=== PATIENT | male | born 1940 | race Caucasian/White ===

== ENCOUNTER 2018-11-10 21:58 | Observation (INO) | payer OTHER ==
--- OUTSIDE RECORDS SUMMARY | 2018-11-10 21:59 | XMS REPORT | Continuity of Care Document ---
:1940 Author Organization Interface Problems Problem Status Onset Date Classification Date Comments Source Reported Medications Medication Details Route Status Patient Ordering Order Source Instructions Provider Date Allergies, Adverse Reactions, Alerts Substance Category Reaction Severity Reaction Status Date Comments Source type Reported Immunizations Immunization Date Given Site Status Last Updated Comments Source Results Order Results Value Reference Date Interpretation Comments Source Name Range Vital Signs Vital Sign Value Date Comments Source Encounters Location Location Encounter Encounter Reason Attending ADM DC Status Source Details Type Number For Provider Date Date Visit Outpatient [id number] [place] 06/17 [facility] Outpatient [id number] ELBERT 12/16 [facility] Procedures Procedure Code Date Perfomer Comments Source
[2018-11-10 22:25] LABS: Absolute Lymphocytes (CBC) 1.5 K/uL (0.7-4.9); Absolute Monocytes 0.4 K/uL (0.1-1.3); Basophils % 0.9 % (0-1.3); Eosinophils % 2.2 % (0-4.4); Hematocrit 40.1 % (39.6-49.0); Lymphocytes % 24.9 % (15.3-44.8); MPV 8.3 fL (7.6-11.3); Monocytes % 7.1 % (3.3-12.3); RBC Red Blood Cell Count 4.24 M/uL (4.33-5.43)
[2018-11-10 22:31] LABS: Protime INR 1.76
[2018-11-10 22:44] LABS: ALT/SGPT 20 U/L (12-78); AST/SGOT 19 U/L (15-37); Albumin 4.2 g/dL (3.4-5.0); Alkaline Phosphatase 59 U/L (45-117); BUN Blood Urea Nitrogen 18 mg/dL (7-18); Bicarbonate 26 mmol/L (21-32); Bilirubin Direct 0.2 mg/dL (0-0.2); Bilirubin Total 0.5 mg/dL (0.2-1.0); Glucose Level 159 mg/dL (74-106); Magnesium 1.8 mg/dL (1.8-2.4); NT PRO-BNP 784 pg/mL (<450); Potassium 3.4 mmol/L (3.5-5.1); Protein, Total 7.8 g/dL (6.4-8.2); Sodium Level 134 mmol/L (136-145); Troponin (Emerg Dept Use Only) < 0.02 ng/mL (0.0-0.045)
--- NOTE | 2018-11-11 00:03 | ER ---
Nurse's Notes [facility] Name: Miko Orr Jr Age: 77 yrs Sex: Male : 1940 Arrival Date: 11/10/2018 Time: 21:59 Bed 3 Private MD: Diagnosis: Syncope and collapse Presentation: 11/10 22:00 Presenting complaint: EMS states: "It was reported to us that he was sitting at his jd3 desk and got up to go to the other room when he fall and passed out for about 5-10 minutes. He was combative at first, but is more appropriate now, he is still a little confused however.". Transition of care: patient was not received from another setting of care. Onset of symptoms was November 10, 2018. Risk Assessment: Do you want to hurt yourself or someone else? Patient reports no desire to harm self or others. Initial Sepsis Screen: Does the patient meet any 2 criteria? No. Patient's initial sepsis screen is negative. Does the patient have a suspected source of infection? No. Patient's initial sepsis screen is negative. Care prior to arrival: Cervical collar in place. Glucose check: 293 Oxygen administered. via nasal cannula. 22:00 Method Of Arrival: EMS: [facility] 22:00 Acuity: HELEN 2 jd3 22:00 Mechanism of Injury: Fall from standing position. Trauma event details: Injury occurred j in the [facility]. Trauma Activation: Alert Physician: ED Physician; Name: Dr. Hanley; Notified At: 22:05; Arrived At: 22:06 Physician: General Surgeon; Name: n/a; Notified At: ; Arrived At: Physician: Radiology; Name: Danuta Howell Victoria; Notified At: 22:05; Arrived At: 22:06 Physician: Respiratory; Name: n/a; Notified At: ; Arrived At: Physician: Lab; Name: n/a; Notified At: ; Arrived At: Historical: - Allergies: 22:23 No Known Allergies; jd3 - Home Meds: 22:23 Flomax 0.4 mg Oral cp24 1 cap once daily [Active]; carbamazepine 200 mg Oral tab 1 tab jd3 twice a day [Active]; fenofibrate 130 mg tab oral tab 1 cap [Active]; pravastatin 40 mg oral tab 1 tab once daily [Active]; Nexium 40 mg Oral cpDR 1 cap once daily [Active]; nifedipine 60 mg Oral TbER 1 tab once daily [Active]; metoprolol tartrate 50 mg Oral tab 1 tab daily [Active]; finasteride 5 mg oral tab 1 tab once daily [Active]; Lyrica Oral [Active]; Xarelto 20 mg oral tab 1 tab once daily [Active]; baclofen 10 mg Oral tab 1 tab twice a day [Active]; - PMHx: 22:23 Myocardial infarction; neuropathy; Hypertension; "heart flutter"; jd3 - PSHx: 22:23 None; jd3 - Immunization history:: Adult Immunizations unknown. - Social history:: Smoking status: Patient/guardian denies using tobacco. - Immunization history: Last tetanus immunization: unknown. - Ebola Screening: : Patient negative for fever greater than or equal to 101.5 degrees Fahrenheit, and additional compatible Ebola Virus Disease symptoms. Screenin:00 Abuse screen: Denies threats or abuse. Tuberculosis screening: jd3 22:00 Nutritional screening: No deficits noted. Fall Risk Fall in past 12 months (25 points). jd3 IV access (20 points). Ambulatory Aid- None/Bed Rest/Nurse Assist (0 pts). Gait- Weak (10 pts.). Mental Status- Oriented to own ability (0 pts). Total Azul Fall Scale indicates High Risk Score (45 or more points). Fall prevention measures have been instituted. Side Rails Up X 2 Placed Close to Nursing Station Frequent Obs/Assessments Occuring Family Present and informed to notify staff if the need to leave the bedside. Primary Survey: 22:00 NO uncontrolled hemorrhage observed. A: The patient is alert. Airway: patent, No jd3 supplemental oxygen in use on arrival. Oral cavity: clear, Trachea midline. Breathing/Chest: Respiratory pattern: regular, Respiratory effort: spontaneous, unlabored, Breath sounds: clear, bilaterally. Chest inspection: symmetrical rise and fall of the chest. Circulation: Cardiac rhythm: atrial flutter Heart tones present. Skin color: pink, Skin temperature: warm. Disability Alert. Exposure/Environment: Obvious injury(ies) are noted at this time: small abrasion noted to left medial wrist. A warming method has been applied: A warm blanket has been provided to the patient. 23:00 Reassessment Airway Airway Patent Oxygen No O2 Oral cavity Clear Breathing/Chest jd3 Respiratory pattern Regular Respiratory effort Spontaneous Unlabored Breath sounds Clear Chest inspection Symmetrical Circulation Heart tones Present Pulses Palpable Color Delmar. Secondary Survey: 22:00 HEENT: No deficits noted. Gastrointestinal: Abdomen is soft, Bowel sounds present in jd3 all quadrants. Palpation No deficit noted. : No signs and/or symptoms were reported regarding the genitourinary system. Musculoskeletal: Circulation, motion, and sensation intact. Range of motion: intact in all extremities. Assessment: 22:00 General: Appears in no apparent distress. uncomfortable, Behavior is calm, cooperative, jd3 appropriate for age. Pain: Denies pain. Neuro: Level of Consciousness is awake, alert, obeys commands, confused, Oriented to person, place. EENT: No signs and/or symptoms were reported regarding the EENT system. Cardiovascular: Denies chest pain, Capillary refill < 3 seconds Patient's skin is warm and dry. Rhythm is irregular. Respiratory: Airway is patent Respiratory effort is even, unlabored, Respiratory pattern is regular, symmetrical, Breath sounds are clear bilaterally. Denies shortness of breath. GI: No signs and/or symptoms were reported involving the gastrointestinal system. Abdomen is round non-distended, Bowel sounds present X 4 quads. Abd is soft and non tender X 4 quads. Patient currently denies diarrhea, nausea, vomiting. : No signs and/or symptoms were reported regarding the genitourinary system. Derm: Skin is intact, Skin is dry, Skin is normal, Skin temperature is warm. Musculoskeletal: Circulation, motion, and sensation intact. Range of motion: intact in all extremities. Injury Description: Abrasion sustained to medial aspect of left hand. 23:00 Reassessment: Patient appears in no apparent distress at this time. No changes from jd3 previously documented assessment. Patient and/or family updated on plan of care and expected duration. Pain level reassessed. Patient is alert, oriented x 3, equal unlabored respirations, skin warm/dry/pink. 23:00 Neuro: Level of Consciousness is awake, alert, obeys commands, Oriented to person, jd3 place, time, situation, Appropriate for age. 23:51 Reassessment: Patient appears in no apparent distress at this time. Patient and/or jd3 family updated on plan of care and expected duration. Pain level reassessed. Patient is alert, oriented x 3, equal unlabored respirations, skin warm/dry/pink. Patient denies pain at this time. 11/11 01:05 Reassessment: Patient appears in no apparent distress at this time. No changes from jd3 previously documented assessment. Patient and/or family updated on plan of care and expected duration. Pain level reassessed. Patient is alert, oriented x 3, equal unlabored respirations, skin warm/dry/pink. Vital Signs: 11/10 22:00 BP 109 / 64; Pulse 59; Resp 18 S; Temp 97.5(O); Pulse Ox 97% on R/A; Weight 92.99 kg jd3 (R); Height 5 ft. 9 in. (175.26 cm) (R); Pain 0/10; 23:00 BP 105 / 63; Pulse 62; Resp 16 S; Pulse Ox 98% on R/A; jd3 23:50 BP 108 / 65; Pulse 78; Resp 14 S; Pulse Ox 98% on R/A; jd3 11/11 01:04 BP 126 / 73; Pulse 64; Resp 15 S; Pulse Ox 96% on R/A; jd3 11/10 22:00 Body Mass Index 30.27 (92.99 kg, 175.26 cm) jd3 Ozzy Coma Score: 11/10 22:00 Eye Response: spontaneous(4). Verbal Response: confused(4). Motor Response: obeys jd3 commands(6). Total: 14. Trauma Score (Adult): 22:00 Eye Response: spontaneous(1); Verbal Response: confused(1); Motor Response: obeys jd3 commands(2); Systolic BP: > 89 mm Hg(4); Respiratory Rate: 10 to 29 per min(4); Moffat Score: 14; Trauma Score: 12 ED Course: 21:59 Patient arrived in ED. al2 21:59 Yon Jarrett PA is PHCP. jr8 21:59 Uday Hanley MD is Attending Physician. jr8 22:00 Arm band placed on Patient provider removed C-collar. jd3 22:00 Patient has correct armband on for positive identification. Placed in gown. Bed in low jd3 position. Call light in reach. Side rails up X2. Adult w/ patient. 22:00 Thermoregulation: warm blanket given to patient. jd3 22:05 Surinder Pacheco, RN is Primary Nurse. jd3 22:15 Triage completed. jd3 22:[address] via stretcher. ls3 22:18 CT completed. Patient tolerated procedure well. Patient moved back from CT. ls3 22:24 CT Head C Spine In Process Unspecified. EDMS 22:31 XRAY Chest (1 view) In Process Unspecified. EDMS 22:39 Patient maintains SpO2 saturation greater than 95% on room air. jd3 23:06 EKG done, by ED staff, reviewed by Uday Hanley MD. ag4 11/11 00:02 Yakov Aguilar MD is Hospitalizing Provider. jr8 01:33 No provider procedures requiring assistance completed. Patient admitted, IV remains in jd3 place. Administered Medications: No medications were administered Intake: 01:33 PO: 50ml (Water); Total: 50ml. jd3 Output: 01:33 Urine: 0ml; Total: 0ml. jd3 Outcome: 00:02 Decision to Hospitalize by Provider. jr8 01:32 Admitted to Tele accompanied by tech, via wheelchair, room 201, with chart, Report jd3 called to Yesenia LITTLEJOHN 01:32 Condition: stable 01:32 Instructed on the need for admit, Demonstrated understanding of instructions. 01:32 Patient's length of stay in the Emergency Department was greater than 2 hours. waiting for room assignmentPatient's length of stay extended due to 01:43 Patient left the ED. jd3 Signatures: Dispatcher [employer] EDNM Yon Jarrett PA PA jr8 Surinder Pacheco, RN RN jd3 Ingrid Mcfadden Lynzie ls3 Gopal Whyet ag4 Corrections: (The following items were deleted from the chart) 11/10 22:25 22:24 BP 109 / 64; Pulse 59bpm; Resp 18bpm; Spontaneous; Pulse Ox 97% RA; Temp 97.5F jd3 Oral; 92.99 kg Reported; Height 5 ft. 9 in. Reported; BMI: 30.2; Pain 0/10; jd3 23:23 22:00 Trauma Activation: Alert; ED Physician Dr. Hanley; General Surgeon n/a; jd3 Respiratory n/a; Lab n/a jd3 11/11 01:32 11/10 23:00 Reassessment: Patient appears in no apparent distress at this time. No jd3 changes from previously documented assessment. Patient and/or family updated on plan of care and expected duration. Pain level reassessed. Patient is alert, oriented x 3, equal unlabored respirations, skin warm/dry/pink. jd3
--- NOTE | 2018-11-11 00:04 | EDPHYS ---
Physician Documentation [facility] Name: Miko Orr Jr Age: 77 yrs Sex: Male : 1940 Arrival Date: 11/10/2018 Time: 21:59 Bed 3 Private MD: ED Physician Uday Hanley HPI: 11/10 22:58 This 77 yrs old Male presents to ER via EMS with complaints of Syncope. jr8 22:58 The patient has experienced syncope, became unresponsive, collapsed. Onset: The jr8 symptoms/episode began/occurred acutely, today. Duration: This was a single episode, that lasted 30 minute(s). Context: the episode(s) was witnessed, by family, occurred at home, occurred while the patient was standing, Just prior to the episode the patient experienced no apparent symptoms. Associated injury: The patient did not suffer any apparent associated injury. Associated signs and symptoms: The patient has no apparent associated signs or symptoms. Current symptoms: Currently, the patient is not experiencing any symptoms, the patient feels back to baseline, no decreased level of consciousness, no confusion, no dysphasia, no headache, no paralysis, no visual changes. The patient has not experienced similar symptoms in the past. The patient has not recently seen a physician. Patient stated that he had just came in from being outside talking and relaxing with his son. Stated that he had a few rum and cokes but did not feel intoxicated. Went to sit at computer to check his email. After finishing got up to use bathroom. At that point had collapsed. Next thing he remembers is EMS getting there. Denies any preceding s/s for the syncopal episode . Historical: - Allergies: 22:23 No Known Allergies; jd3 - Home Meds: 22:23 Flomax 0.4 mg Oral cp24 1 cap once daily [Active]; carbamazepine 200 mg Oral tab 1 tab jd3 twice a day [Active]; fenofibrate 130 mg tab oral tab 1 cap [Active]; pravastatin 40 mg oral tab 1 tab once daily [Active]; Nexium 40 mg Oral cpDR 1 cap once daily [Active]; nifedipine 60 mg Oral TbER 1 tab once daily [Active]; metoprolol tartrate 50 mg Oral tab 1 tab daily [Active]; finasteride 5 mg oral tab 1 tab once daily [Active]; Lyrica Oral [Active]; Xarelto 20 mg oral tab 1 tab once daily [Active]; baclofen 10 mg Oral tab 1 tab twice a day [Active]; - PMHx: 22:23 Myocardial infarction; neuropathy; Hypertension; "heart flutter"; jd3 - PSHx: 22:23 None; jd3 - Immunization history:: Adult Immunizations unknown. - Social history:: Smoking status: Patient/guardian denies using tobacco. - Immunization history: Last tetanus immunization: unknown. - Ebola Screening: : Patient negative for fever greater than or equal to 101.5 degrees Fahrenheit, and additional compatible Ebola Virus Disease symptoms. ROS: 22:58 Eyes: Negative for injury, pain, redness, and discharge, ENT: Negative for injury, jr8 pain, and discharge, Neck: Negative for injury, pain, and swelling, Cardiovascular: Negative for chest pain, palpitations, and edema, Respiratory: Negative for shortness of breath, cough, wheezing, and pleuritic chest pain, Abdomen/GI: Negative for abdominal pain, nausea, vomiting, diarrhea, and constipation, Back: Negative for injury and pain, MS/Extremity: Negative for injury and deformity, Skin: Negative for injury, rash, and discoloration. 22:58 Neuro: Positive for syncope. Exam: 22:58 Head/Face: Normocephalic, atraumatic. Eyes: Pupils equal round and reactive to light, jr8 extra-ocular motions intact. Lids and lashes normal. Conjunctiva and sclera are non-icteric and not injected. Cornea within normal limits. Periorbital areas with no swelling, redness, or edema. ENT: Nares patent. No nasal discharge, no septal abnormalities noted. Tympanic membranes are normal and external auditory canals are clear. Oropharynx with no redness, swelling, or masses, exudates, or evidence of obstruction, uvula midline. Mucous membranes moist. Neck: Trachea midline, no thyromegaly or masses palpated, and no cervical lymphadenopathy. Supple, full range of motion without nuchal rigidity, or vertebral point tenderness. No Meningismus. Cardiovascular: Regular rate and rhythm with a normal S1 and S2. No gallops, murmurs, or rubs. Normal PMI, no JVD. No pulse deficits. Respiratory: Lungs have equal breath sounds bilaterally, clear to auscultation and percussion. No rales, rhonchi or wheezes noted. No increased work of breathing, no retractions or nasal flaring. Abdomen/GI: Soft, non-tender, with normal bowel sounds. No distension or tympany. No guarding or rebound. No evidence of tenderness throughout. Back: No spinal tenderness. No costovertebral tenderness. Full range of motion. Skin: Warm, dry with normal turgor. Normal color with no rashes, no lesions, and no evidence of cellulitis. MS/ Extremity: Pulses equal, no cyanosis. Neurovascular intact. Full, normal range of motion. Neuro: Awake and alert, GCS 15, oriented to person, place, time, and situation. Cranial nerves II-XII grossly intact. Motor strength 5/5 in all extremities. Sensory grossly intact. Cerebellar exam normal. Normal gait. Vital Signs: 22:00 BP 109 / 64; Pulse 59; Resp 18 S; Temp 97.5(O); Pulse Ox 97% on R/A; Weight 92.99 kg j (R); Height 5 ft. 9 in. (175.26 cm) (R); Pain 0/10; 23:00 BP 105 / 63; Pulse 62; Resp 16 S; Pulse Ox 98% on R/A; jd3 23:50 BP 108 / 65; Pulse 78; Resp 14 S; Pulse Ox 98% on R/A; jd3 11/11 01:04 BP 126 / 73; Pulse 64; Resp 15 S; Pulse Ox 96% on R/A; jd3 11/10 22:00 Body Mass Index 30.27 (92.99 kg, 175.26 cm) j Ozzy Coma Score: 11/10 22:00 Eye Response: spontaneous(4). Verbal Response: confused(4). Motor Response: obeys jd3 commands(6). Total: 14. Trauma Score (Adult): 22:00 Eye Response: spontaneous(1); Verbal Response: confused(1); Motor Response: obeys jd3 commands(2); Systolic BP: > 89 mm Hg(4); Respiratory Rate: 10 to 29 per min(4); Ozzy Score: 14; Trauma Score: 12 MDM: 21:59 Patient medically screened. [facility] 11/11 00:00 Data reviewed: vital signs, nurses notes, lab test result(s), EKG, radiologic studies, CT scan, plain films. Data interpreted: Pulse oximetry: on room air is 98 %. Interpretation: normal. Counseling: I had a detailed discussion with the patient and/or guardian regarding: the historical points, exam findings, and any diagnostic results supporting the discharge/admit diagnosis, lab results, radiology results, the need for further work-up and treatment in the hospital. ED course: Patient at baseline now. Did not remember some of the things we talked about when he first arrive. After talking with when she got to hospital, found out he was unconscious and minimally responsive for almost 30 minutes. Will admit for further evaluation . 00:14 ED course: Called and left message with Dr. Aguilar to call back for admission . 11/10 22:10 Order name: Basic Metabolic Panel; Complete Time: :11/10 22:10 Order name: CBC with Diff; Complete Time: 22:33 11/10 22:10 Order name: LFT's; Complete Time: :11/10 22:10 Order name: Magnesium; Complete Time: :11/10 22:10 Order name: NT PRO-BNP; Complete Time: :11/10 22:10 Order name: PT-INR; Complete Time: 22:37 11/10 22:10 Order name: Troponin (emerg Dept Use Only); Complete Time: :11/10 22:10 Order name: XRAY Chest (1 view) 11/10 22:10 Order name: EKG; Complete Time: 22:11 11/10 22:10 Order name: Cardiac monitoring; Complete Time: :11/10 22:10 Order name: IV Saline Lock; Complete Time: :11/10 22:10 Order name: Labs collected and sent; Complete Time: 22:11/10 22:10 Order name: CT Head C Spine 11/10 22:10 Order name: O2 Per Protocol; Complete Time: 11/10 22:10 Order name: O2 Sat Monitoring; Complete Time: :11/10 22:11 Order name: Orthostatics; Complete Time: Administered Medications: No medications were administered Disposition: 02:25 Co-signature as Attending Physician, Uday Hanley MD. rn Disposition: 11/11/18 00:02 Hospitalization ordered by Yakov Aguilar for Observation. Preliminary diagnosis is Syncope and collapse. - Bed requested for Telemetry/MedSurg (observation). - Status is Observation. jd3 - Condition is Stable. - Problem is new. - Symptoms are resolved. UTI on Admission? No Signatures: Dispatcher [employer] EDMS Uday Hanley MD MD rn Roszak, Josh, PA PA jr8 Tasha Wong RN RN Surinder Pacheco RN RN jd3 Corrections: (The following items were deleted from the chart) 11/10 23:59 22:58 Duration: This was a single episode, that lasted 5 minute(s), jr8 jr8 11/11 01:06 00:02 Hospitalization Ordered by Yakov Aguilar MD for Observation. Preliminary cg diagnosis is Syncope and collapse. Bed requested for Telemetry/MedSurg (observation). Status is Observation. Condition is Stable. Problem is new. Symptoms are resolved. UTI on Admission? No. jr8 01:43 01:06 11/11/2018 00:02 Hospitalization Ordered by Yakov Aguilar MD for Observation. jd3 Preliminary diagnosis is Syncope and collapse. Bed requested for Telemetry/MedSurg (observation). Status is Observation. Condition is Stable. Problem is new. Symptoms are resolved. UTI on Admission? No. cg
[2018-11-11] MEDS ORDERED: ACETAMINOPHEN 500 MG TAB PO PRN (01:45)
[2018-11-11] MEDS ORDERED: ONDANSETRON 4 MG/2 ML VIAL IV PRN (01:45)
--- NOTE | 2018-11-11 05:48 | EKG ---
Test Date: 2018-11-10 Test Time: 22:48:34 Auctioneer Tobacco: AG3 MEASUREMENT RESULTS: Intervals: Rate: 68 CO: 224 QRSD: 116 QT: 442 QTc: 469 [place]: P: CO: 224 QRS: 60 T: 239 INTERPRETIVE STATEMENTS: Sinus rhythm with sinus arrhythmia with 1st degree AV block Inferior infarct, age undetermined Abnormal ECG Compared to ECG 01/14/2014 05:03:06 First degree AV block now present Myocardial infarct finding still present Electronically Signed On 11-11-18 05:47:55 GLOBAL CATEGORY MANAGER by Paco Nunez
--- NOTE | 2018-11-11 08:19 | RAD REPORT ---
EXAM DESCRIPTION: CT - Head C Spine Mpr Wo Con - 11/11/2018 2:23 am CLINICAL HISTORY: Syncope. Head and neck injury status post fall. Head and neck pain COMPARISON: 2010 brain MRI TECHNIQUE: Computed axial tomography of the head and cervical spine was obtained. Sagittal and coronal reconstruction was performed.A preliminary report was generated by Door 6 and reviewed prior to dictation All CT scans are performed using dose optimization technique as appropriate and may include automated exposure control or mA/KV adjustment according to patient size. FINDINGS: An intracranial bleed is not seen. The ventricles are normal in caliber. An extra-axial fl uid collection is not noted.Fluid within the visualized sinuses and mastoids is not seen A cervical fracture is not visualized. No dislocation is noted. Spondylosis involves the mid and dist al cervical spine resulting in moderate foraminal stenosis at several levels. IMPRESSION: No acute intracranial abnormality is seen. A cervical fracture is not visualized. If the patient continues to have symptoms to suggest intracra nial /spinal cord pathology then MRI would be recommended
--- NOTE | 2018-11-11 08:38 | RAD REPORT ---
EXAM DESCRIPTION: Stacie Single View11/10/2018 10:30 pm CLINICAL HISTORY: Shortness breath COMPARISON: November 04, 2018 FINDINGS: The lungs appear clear of acute infiltrate. The heart is normal size IMPRESSION: No acute abnormalities displayed
[2018-11-11] MEDS ORDERED: INFLUENZA VACCINE (for 3y+) 0.5 ML DOSE IMVAC ONE (09:00)
[2018-11-11] MEDS: FENOFIBRATE MICRONIZED 130 MG PO SCH (09:00)
[2018-11-11] MEDS: TAMSULOSIN 0.4 MG SR CAP PO SCH (09:47)
[2018-11-11] MEDS: BACLOFEN 10 MG TAB PO SCH ×2 (09:47→20:56)
[2018-11-11] MEDS: METOPROLOL XL 50 MG TAB PO SCH (09:47)
[2018-11-11] MEDS: NIFEDIPINE XL 60 MG TABLET PO SCH (09:47)
[2018-11-11] MEDS: PREGABALIN 150 MG CAP PO SCH ×2 (09:47→20:56)
[2018-11-11] MEDS: CARBAMAZEPINE 200 MG TAB PO SCH ×2 (09:47→20:57)
[2018-11-11] MEDS: FINASTERIDE 5 MG TAB PO SCH (09:47)
--- NOTE | 2018-11-11 14:06 | RAD REPORT ---
EXAM DESCRIPTION: USCarotid Artery Bilateral11/11/2018 1:19 pm CLINICAL HISTORY: Syncope COMPARISON: None FINDINGS: The velocity of the right internal carotid artery equals 67 cm/sec. The right ICA/CCA rati o 0.8 The velocity of the left internal carotid artery equals 93 cm/sec. The left ICA/CCA ratio 1.1 Mild plaque is present within the carotid arteries. The vertebral arteries demonstrate antegrade flow IMPRESSION: Mild plaque within the carotid arteries without evidence of a hemodynamically significan t stenosis NASCET criteria used. Mild 0-49% stenosis Moderate 50-69% stenosis Severe 70-99% stenosis
--- NOTE | 2018-11-11 14:37 | RAD REPORT ---
EXAM DESCRIPTION: MRI - Brain W/Wo Cont - 11/11/2018 1:58 pm CLINICAL HISTORY: Syncope COMPARISON: 2009 TECHNIQUE: Axial, sagittal, and coronal magnetic images of the brain were obtained. 20 cc MultiHance administered intravenously FINDINGS: No abnormal signal within the brain is noted. The ventricles are normal in caliber. Diffusion-weighted sequences do not demonstrate evidence of an acute infarction. No abnormal enhancement within the brain is seen. An extra-axial fluid collection is not noted. Fluid within the sinuses/mastoids is not seen IMPRESSION: Unremarkable brain MRI.
[2018-11-11] MEDS ORDERED: RIVAROXABAN 20 MG TABLET PO SCH (17:00)
[2018-11-11] MEDS ORDERED: ATORVASTATIN 10 MG TAB PO SCH (21:00)
--- NOTE | 2018-11-11 21:42 | HP ---
Date of Admission: 11/11/2018 History Of Present Illness: The patient is a 77-year-old male who came to emergency room after he ex perienced at home fainting/syncopal episode. The patient described that he was going to the bathroom when he woke up and found himself with the ambulance people around him. The gave history that he became confused, had him sit down, and the patient lost consciousness. She called the ambulance; and by the time they got there, it was about 20 to 30 minutes; and that is the time of the patient's fainting syncopal episode. The patient did not have any symptoms of chest pain or increased shortnes s of breath. He actually did not feel any other symptoms. Review of Systems: Cardiovascular: No complaints. Respiratory: No complaints. Neurological: As above. Gastrointestinal: No complaints. Genitourinary: No complaints. Skeletomuscular: No complaint. Past Medical History: Includes; 1.Hypertension. 2.Hyperlipidemia. 3.Benign prostatic hypertrophy. 4.Atrial fibrillation. 5.Gastroesophageal reflux disease. 6.Hyperlipidemia. Family History: Noncontributing. Social History: No smoking, alcohol, or drug abuse history. Medications: Include baclofen 10 mg p.o. b.i.d., Tegretol 200 mg p.o. b.i.d., Nexium 40 mg p.o. macarena y, fenofibrate 130 mg p.o. daily, Proscar 5 mg p.o. daily, metoprolol 50 mg p.o. daily, pravastatin 4 0 mg p.o. daily, Lyrica 75 mg p.o. daily, Xarelto 10 mg p.o. daily, and tamsulosin 0.4 mg daily. Allergies: NO KNOWN DRUG ALLERGIES. Physical Examination: Vital Signs: Blood pressure 160/85, pulse 70, and temperature 97.5. Heart: Regular rate and rhythm. Chest: Clear to auscultation. Abdomen: Soft, nontender. No chest pain. Bowel sounds normoactive. Extremities: No edema. No cyanosis. Peripheral pulses are felt. Neurological: By the time of my interview of the patient, he was alert and oriented x4, nonfocal, gr ossly intact. Laboratory Data: The patient's chest x-ray; no acute pathology. EKG showed sinus rhythm with sinus arrhythmia and first-degree AV block, inferior Q-waves. Head and cervical spine CT showed no acute p athology. Sodium 134, potassium 3.4, BUN 18, and creatinine 1.08. Troponin less than 0.02 on 3 spec imens. BNP 784. Assessment/plan: Syncopal episode for about 20 to 30 minutes. The patient's workup till now is nonr evealing, but admitted him for observation. We will then do a brain MRI and echo on his carotids, an d we will ask Neurology consult. The patient may have experienced a seizure or absence seizure. So, we will ask Neurology from that standpoint. His troponin, his EKG, and his physical examination and symptoms are nonrevealing for any cardiac events. If his workup is negative, we will discharge the patient, and we will follow him up as an outpatient if Neurology sees him and there is no further wor kup and it is okay with them. Look orders for details. MFS/MODL Voice ID: [id number]
--- NOTE | 2018-11-12 01:28 | CON ---
Date of Consultation: 11/11/2018 Reason For Consultation: Syncope. History Of Present Illness: A 77-year-old gentleman whom I see chronically for trigeminal neuralgia. He takes Tegretol 200 mg twice daily. He was in his usual state of health until yesterday. He has a sailboat. He was working on the sailboat. He came home. He had a few drinks, which is really no thing out of the ordinary for him, nothing that seems excessive. He went to go to take a shower befo re dinner when he had an episode of syncope. The patient remembers being unsteady on his feet, fell to the ground, was briefly unconscious. No convulsive activity. No incontinence. No tongue biting. EMS was summoned. He had slight dysarthria. Initially, brought to the Emergency Department. By t he time he was in the Emergency Department, he was well back to his baseline. He is on Xarelto chron ically. EKG, sinus rhythm, first-degree AV block. Labs normal since being admitted. Brain MRI, no stroke, normal white count 6.1, hemoglobin 13.3, and platelets 134. INR 1.7. Sodium 134. Creatinin e normal. Glucose 159. Tegretol level 9.1. Carotid Doppler; no stenosis. He feels well. He is no t having any symptoms. He did not have any vision loss or extremity weakness or paresthesias associa mony with the event. Consultation was requested. Past Medical History: 1.Trigeminal neuralgia. 2.History of arrhythmia for which he is on Xarelto. 3.Hypertension. 4.Hyperlipidemia. Routine Medications: 1.Xarelto 20 mg daily. 2.Baclofen 10 mg twice daily. 3.Lyrica 150 mg twice daily. 4.Proscar. 5.Toprol. 6.Procardia. 7.Nexium. 8.Pravachol. 9.Fenofibrate. 10.Flomax. 11.Tegretol. Social History: . Does drink on occasion. Normally independent activities of daily living. Family History: No family history of premature strokes or seizures. Review of Systems: General: Generally good health. Eyes: Negative. Ears, nose, and throat: Negative. Cardiovascular: Hypertension. Pulmonary: Occasional dyspnea. Gastrointestinal: Negative. Genitourinary: Negative. Musculoskeletal: Arthralgias. Neurologic: As noted. Psychiatric: Negative. Endocrine: Slight hyperglycemia. Hematologic: Negative. Physical Examination: Vital signs: Temperature 98.6, pulse 68, respirations 20, and blood pressure 127/73. General: He is awake, alert, oriented to time, person, place, and situation. Heart: Sinus rhythm. No carotid bruits. Lungs: Clear. Abdomen: Soft. Bowel sounds present. HEENT: Pupils equal, round, and reactive. Ocular motion full without nystagmus. Visual childers full to confrontation bilaterally. Facial strength and sensation are normal. Tongue protrudes evenly. Soft palate elevates symmetrically bilaterally. Extremities: Strength full. Sensation intact. Reflexes 1/4, symmetric, toes are downgoing. Cerebe llar exam demonstrates no ataxia. Gait is normal. Additional Labs: Chest x-ray is clear. Brain imaging and additional labs as noted. Impression: Syncope, probably a vasovagal reaction. No evidence for stroke, episode does not really sound like a seizure. Plan: I think he could safely be discharged to home tomorrow, if he remains stable overnight. Would continue present medications. The Tegretol dose decreased the efficacy of the Xarelto somewhat, but he is not in atrial fibrillation currently. He has another EKG in labs pending for the morning. EE G has been ordered, but I think it could likely be done as an outpatient. Thank you for the consult. ELIANE Voice ID: [id number] Report ID: [id number]
[2018-11-12 05:43] LABS: Absolute Lymphocytes (CBC) 1.3 K/uL (0.7-4.9); Absolute Monocytes 0.5 K/uL (0.1-1.3); Absolute Neutrophil 3.2 K/uL (1.8-8.0); Basophils % 0.9 % (0-1.3); Eosinophils % 2.3 % (0-4.4); Hematocrit 36.9 % (39.6-49.0); Lymphocytes % 24.9 % (15.3-44.8); MPV 8.6 fL (7.6-11.3); Monocytes % 9.9 % (3.3-12.3); RBC Red Blood Cell Count 3.91 M/uL (4.33-5.43)
[2018-11-12] MEDS ORDERED: PANTOPRAZOLE 40MG TABLET PO SCH (06:30)
[2018-11-12] MEDS: NIFEDIPINE XL 60 MG TABLET PO SCH (09:00)
[2018-11-12] MEDS: FENOFIBRATE MICRONIZED 130 MG PO SCH (09:00)
[2018-11-12] MEDS: PREGABALIN 150 MG CAP PO SCH (09:00)
[2018-11-12] MEDS: TAMSULOSIN 0.4 MG SR CAP PO SCH (09:00)
[2018-11-12] MEDS: METOPROLOL XL 50 MG TAB PO SCH (09:00)
[2018-11-12] MEDS: FINASTERIDE 5 MG TAB PO SCH (09:00)
[2018-11-12] MEDS: BACLOFEN 10 MG TAB PO SCH (09:00)
[2018-11-12] MEDS: CARBAMAZEPINE 200 MG TAB PO SCH (09:17)
--- NOTE | 2018-11-12 16:15 | EKG ---
Test Date: 2018-11-12 Test Time: 08:45:14 Stratigraphy Teacher: REYES MEASUREMENT RESULTS: Intervals: Rate: 87 NM: QRSD: 116 QT: 350 QTc: 421 [place]: P: NM: QRS: 80 T: -74 INTERPRETIVE STATEMENTS: Atrial fibrillation Possible Inferior infarct, age undetermined Abnormal ECG Compared to ECG 11/10/2018 22:48:34 Sinus rhythm no longer present Myocardial infarct finding still present Electronically Signed On 11-12-18 16:15:22 CONSULAR OFFICER by Paco Nunez
== END 2018-11-12 12:34 | disposition home or self-care (01) ==
LOC: ER 21:58 → ERHOLD 11-11 00:53 → 2ND 11-11 01:34
PROVIDERS: ADMIT Internal Medicine; ATTEND Internal Medicine
DX: R55 Syncope and collapse (principal); I10 Essential (primary) hypertension; E78.5 Hyperlipidemia, unspecified; N40.0 Benign prostatic hyperplasia without lower urinary tract symptoms; I48.91 Unspecified atrial fibrillation; K21.9 Gastro-esophageal reflux disease without esophagitis; G50.0 Trigeminal neuralgia; Z23 Encounter for immunization
CPT/HCPCS: 36415 ×2; 70450; 70553; 71045; 72125; 80048 ×2; 80076; 80156; 83735; 83880; 84484 ×3; 85025 ×2; 85610; 93005 ×2; 93880; 99285; A9577; G0008; G0378 ×2; Q2035

== ENCOUNTER 2020-01-12 01:24 | Inpatient (IN) | payer OTHER ==
[2020-01-14 04:29] VITALS: BMI 26.6
[2020-01-14 08:52] VITALS: O2SAT 96
[2020-01-14 09:43] VITALS: TEMP 99
[2020-01-14 11:45] VITALS: BP 105/59
== END 2020-01-14 11:37 | disposition home or self-care (01) | DRG 247 ==
LOC: ER 01:24 → ERHOLD 02:58 → 3RD-ICU 03:22 → OBSVTOIN 06:50
PROVIDERS: ADMIT Internal Medicine; ATTEND Family Medicine
PROC: 5A2204Z Restoration of Cardiac Rhythm, Single (ICD-10-PCS; 2020-01-12)
PROC: 027034Z Dilation of Coronary Artery, One Artery with Drug-eluting Intraluminal Device, Percutaneous Approach (ICD-10-PCS; principal; 2020-01-13)
PROC: 4A023N7 Measurement of Cardiac Sampling and Pressure, Left Heart, Percutaneous Approach (ICD-10-PCS; 2020-01-13)
PROC: B2111ZZ Fluoroscopy of Multiple Coronary Arteries using Low Osmolar Contrast (ICD-10-PCS; 2020-01-13)
DX: I21.4 Non-ST elevation (NSTEMI) myocardial infarction (principal); I47.1 Supraventricular tachycardia; I48.20 Chronic atrial fibrillation, unspecified; G43.909 Migraine, unspecified, not intractable, without status migrainosus; I10 Essential (primary) hypertension; I25.2 Old myocardial infarction; I25.10 Atherosclerotic heart disease of native coronary artery without angina pectoris; E78.5 Hyperlipidemia, unspecified; K21.9 Gastro-esophageal reflux disease without esophagitis; N40.0 Benign prostatic hyperplasia without lower urinary tract symptoms; J44.9 Chronic obstructive pulmonary disease, unspecified; G89.29 Other chronic pain; R00.1 Bradycardia, unspecified; Z95.1 Presence of aortocoronary bypass graft; Z79.899 Other long term (current) drug therapy; Z87.891 Personal history of nicotine dependence; Z79.01 Long term (current) use of anticoagulants; T50.905A Adverse effect of unspecified drugs, medicaments and biological substances, initial encounter
CPT/HCPCS: 36415; 71045; 80048; 80053; 80061; 80076; 82947; 83735; 83880; 84439; 84443; 84484; 85025; 85347; 85610; 92960; 93005; 93306; 93454; 96361; 96365; 96375; 99291; C1725; C1760; C1893; C9600; G0378; J0583; J1610; J2250; J3010; J7030; J7060

== ENCOUNTER 2021-10-13 17:10 | Inpatient (IN) | payer OTHER ==
[2021-10-13 18:27] LABS: Absolute Lymphocytes (CBC) 0.3 K/uL (0.7-4.9); Lymphocytes % 6.4 % (15.3-44.8); MPV 8.1 fL (7.6-11.3); RBC Red Blood Cell Count 4.57 M/uL (4.33-5.43)
[2021-10-13 18:34] LABS: Protime INR 1.95
[2021-10-13 18:38] LABS: Potassium 3.8 mmol/L (3.5-5.1); Sodium Level 137 mmol/L (136-145)
[2021-10-13 18:48] LABS: ALT/SGPT 24 U/L (12-78); AST/SGOT 12 U/L (15-37); Albumin 3.7 g/dL (3.4-5.0); Alkaline Phosphatase 82 U/L (45-117); Amylase 54 U/L (25-115); BUN Blood Urea Nitrogen 27 mg/dL (7-18); Bicarbonate 24 mmol/L (21-32); Bilirubin Direct 0.4 mg/dL (0-0.2); Bilirubin Total 1.3 mg/dL (0.2-1.0); Creatine Phosphokinase 65 U/L (39-308); Glucose Level 105 mg/dL (74-106); Lipase 77 U/L (73-393); Magnesium 2.1 mg/dL (1.8-2.4); NT PRO-BNP 1257 pg/mL (<450); Protein, Total 7.8 g/dL (6.4-8.2); Troponin (Emerg Dept Use Only) < 0.02 ng/mL (0.0-0.045)
[2021-10-13 18:58] LABS: CKMB Creatine Kinase MB < 1.0 ng/mL (1.0-3.6)
--- NOTE | 2021-10-13 19:00 | RAD REPORT ---
EXAM DESCRIPTION: RAD - Chest Single View - 10/13/2021 6:37 pm CLINICAL HISTORY: COPD COMPARISON: Chest Pa And Lat (2 Views) dated 06/18/2021; Chest Single View dated 01/12/2020; Chest Singl e View dated 11/10/2018; Chest Pa And Lat (2 Views) dated 11/04/2018 FINDINGS: Lines: None. Lungs: Consolidative airspace disease in the lung bases, left greater than right. Pleural: No significant pleural effusions or pneumothorax. Cardiac: The heart size is within normal limits. Bones: No acute fractures. Other: IMPRESSION: Basilar airspace disease, left greater than right, concerning for pneumonia.
[2021-10-13 19:08] LABS: SARS-COV-2 RT PCR NEGATIVE (NEGATIVE)
[2021-10-13 19:10] LABS: Urine Blood Negative (Negative); Urine Glucose Negative (Negative); Urine Protein Negative (Negative)
[2021-10-13 19:33] LABS: Urine Bacteria <20 /HPF (NONE SEEN); Urine RBC <5 /HPF (NONE SEEN)
[2021-10-13 19:58] LABS: Platelet Estimate ADEQ; White Blood Cell Scan OK (OK)
[2021-10-13 19:59] LABS: Blood Morphology Comment NOT SEEN (NOT SEEN)
--- NOTE | 2021-10-13 21:52 | ER ---
Nurse's Notes [facility] Name: Miko Orr Jr Age: 80 yrs Sex: Male : 1940 Arrival Date: 10/13/2021 Time: 17:13 Bed 24 Private MD: Diagnosis: Pneumonia, unspecified organism;Respiratory failure, unspecified with hypoxia Presentation: 10/13 17:54 Chief complaint: Spouse and/or significant other states: STATES THAT PT IS iw DISORIENTED AND HAVING CHILLS ,SOB ,STARTING TODAY. Onset of symptoms was October 13, 2021. 17:54 Method Of Arrival: Wheelchair iw 17:54 Acuity: HELEN 2 iw Triage Assessment: 17:59 General: Appears in no apparent distress. iw Historical: - Allergies: 18:01 No Known Allergies; iw - Home Meds: 17:57 baclofen 10 mg Oral tab 1 tab twice a day [Active]; fenofibrate 130 mg tab Oral tab 1 iw cap [Active]; Flomax 0.4 mg Oral cp24 1 cap once daily [Active]; Lyrica Oral [Active]; metoprolol tartrate 50 mg Oral tab 1 tab daily [Active]; nifedipine 60 mg Oral TbER 1 tab once daily [Active]; pravastatin 40 mg Oral tab 1 tab once daily [Active]; Xarelto 20 mg Oral tab 1 tab once daily [Active]; carbamazepine 200 mg Oral tab 1 tab twice a day [Active]; losartan 100 mg Oral tab 1 tab once daily [Active]; finasteride 5 mg Oral tab 1 tab once daily [Active]; Nexium 40 mg Oral cpDR 1 cap once daily [Active]; - PMHx: 17:57 "heart flutter"; Hypertension; Myocardial infarction; iw Assessment: 23:00 General: Appears in no apparent distress. Behavior is calm, cooperative. Pain: Denies as6 pain. Cardiovascular: Reports shortness of breath, Capillary refill < 3 seconds Patient's skin is warm and dry. Rhythm is regular. Cardiovascular: Reports fatigue. Respiratory: Airway is patent Trachea midline Respiratory effort is even, unlabored, Respiratory pattern is regular, symmetrical, Breath sounds are diminished bilaterally. Derm: Skin is intact. Vital Signs: 17:54 BP 103 / 61; Pulse 112; Resp 18; Temp 99.3; Pulse Ox 92% on R/A; Weight 76.2 kg; Height iw 5 ft. 6 in. (167.64 cm); 17:59 BP 103 / 61; Pulse 110; Resp 18; Temp 99.3; Pulse Ox 92% on R/A; Weight 76.2 kg; Height iw 5 ft. 10 in. (177.80 cm); 23:00 BP 105 / 59; Pulse 80; Resp 18; Pulse Ox 92% on R/A; as6 10/14 03:00 BP 106 / 57; Pulse 84; Resp 22 S; Pulse Ox 91% on R/A; as6 10/13 17:59 Body Mass Index 24.11 (76.20 kg, 177.80 cm) iw ED Course: 10/13 17:13 Patient arrived in ED. ds1 17:57 Triage completed. iw 18:08 Alma Rosa Monzon, ANNETTA is Primary Nurse. iw 18:08 Yon Jarrett PA is PHCP. jr8 18:08 David Oconnell MD is Attending Physician. jr8 18:15 Initial lab(s) drawn, First set of blood cultures drawn by ar. Inserted saline lock: 20 dh3 gauge in right forearm, using aseptic technique. Blood collected. 18:25 Second set of blood cultures drawn. dh3 18:31 COVID-19/FLU A+B (Document "Date of Onset" if Symptomatic) Sent. dh3 18:37 Chest Single View XRAY In Process Unspecified. EDMS 19:12 Primary Nurse role handed off by Alma Rosa Monzon RN eb 21:20 Stephan Clayton, ANNETTA is Primary Nurse. as6 21:51 Diony Hawkins DO is Hospitalizing Provider. jr8 Administered Medications: 18:08 Not Given (Physician Discretion): NS 0.9% (30 ml/kg) 30 ml/kg IV at bolus once; Sepsis jr8 Protocol 22:59 Drug: LevaQUIN (levofloxacin) 750 mg Volume: 150 ml; Route: IVPB; Infused Over: 90 as6 mins; Site: right antecubital; Outcome: 21:52 Decision to Hospitalize by Provider. jr8 10/14 14:05 Patient left the ED. iw Signatures: Dispatcher [employer] EDNE Kristina Irene ds1 Alma Rosa Monzon RN RN iw Yon Jarrett PA PA jr8 Magali Aleman dh3 Shruthi Aguilera Ashby, RN RN as6
--- NOTE | 2021-10-13 21:53 | EDPHYS ---
Physician Documentation [facility] Name: Miko Orr Jr Age: 80 yrs Sex: Male : 1940 Arrival Date: 10/13/2021 Time: 17:13 Bed 24 Private MD: ED Physician David Oconnell HPI: 10/13 18:09 This 80 yrs old Male presents to ER via Wheelchair with complaints of Breathing jr8 Difficulty. 18:09 Onset: The symptoms/episode began/occurred acutely, today. Duration: The symptoms are jr8 continuous, and are steadily getting worse. The patient's shortness of breath is aggravated by light activity. Associated signs and symptoms: Pertinent positives: non-productive cough. Severity of symptoms: At their worst the symptoms were moderate in the emergency department the symptoms are unchanged. It is unknown whether or not the patient has had similar symptoms in the past. The patient has not recently seen a physician. reports fevers at home of 101. Historical: - Allergies: 18:01 No Known Allergies; iw - Home Meds: 17:57 baclofen 10 mg Oral tab 1 tab twice a day [Active]; fenofibrate 130 mg tab Oral tab 1 iw cap [Active]; Flomax 0.4 mg Oral cp24 1 cap once daily [Active]; Lyrica Oral [Active]; metoprolol tartrate 50 mg Oral tab 1 tab daily [Active]; nifedipine 60 mg Oral TbER 1 tab once daily [Active]; pravastatin 40 mg Oral tab 1 tab once daily [Active]; Xarelto 20 mg Oral tab 1 tab once daily [Active]; carbamazepine 200 mg Oral tab 1 tab twice a day [Active]; losartan 100 mg Oral tab 1 tab once daily [Active]; finasteride 5 mg Oral tab 1 tab once daily [Active]; Nexium 40 mg Oral cpDR 1 cap once daily [Active]; - PMHx: 17:57 "heart flutter"; Hypertension; Myocardial infarction; iw ROS: 18:09 Cardiovascular: Negative for chest pain, palpitations, and edema, Abdomen/GI: Negative jr8 for abdominal pain, nausea, vomiting, diarrhea, and constipation, Back: Negative for injury and pain, MS/Extremity: Negative for injury and deformity, Skin: Negative for injury, rash, and discoloration, Neuro: Negative for headache, weakness, numbness, tingling, and seizure. 18:09 Constitutional: Positive for fever, malaise. 18:09 Respiratory: Positive for cough, dyspnea on exertion, shortness of breath. Exam: 18:09 Constitutional: This is a well developed, well nourished patient who is awake, alert, jr8 and in no acute distress. Eyes: Pupils equal round and reactive to light, extra-ocular motions intact. Lids and lashes normal. Conjunctiva and sclera are non-icteric and not injected. Cornea within normal limits. Periorbital areas with no swelling, redness, or edema. ENT: Nares patent. No nasal discharge, no septal abnormalities noted. Tympanic membranes are normal and external auditory canals are clear. Oropharynx with no redness, swelling, or masses, exudates, or evidence of obstruction, uvula midline. Mucous membranes moist. Abdomen/GI: Soft, non-tender, with normal bowel sounds. No distension or tympany. No guarding or rebound. No evidence of tenderness throughout. Back: No spinal tenderness. No costovertebral tenderness. Full range of motion. Skin: Warm, dry with normal turgor. Normal color with no rashes, no lesions, and no evidence of cellulitis. MS/ Extremity: Pulses equal, no cyanosis. Neurovascular intact. Full, normal range of motion. Neuro: Awake and alert, GCS 15, oriented to person, place, time, and situation. Cranial nerves II-XII grossly intact. Motor strength 5/5 in all extremities. Sensory grossly intact. 18:09 Cardiovascular: Rate: tachycardic, Pulses: Pulses are 2+ in right radial artery and left radial artery. Heart sounds: murmur, systolic, grade 3 over 6, Edema: is not appreciated. 18:09 Respiratory: the patient does not display signs of respiratory distress, Respirations: normal, Breath sounds: are clear throughout, no bronchial sounds, no decreased breath sounds, no rales, rhonchi, no stridor, no wheezing, Respiratory rate: 18 Vital Signs: 17:54 BP 103 / 61; Pulse 112; Resp 18; Temp 99.3; Pulse Ox 92% on R/A; Weight 76.2 kg; Height iw 5 ft. 6 in. (167.64 cm); 17:59 BP 103 / 61; Pulse 110; Resp 18; Temp 99.3; Pulse Ox 92% on R/A; Weight 76.2 kg; Height iw 5 ft. 10 in. (177.80 cm); 23:00 BP 105 / 59; Pulse 80; Resp 18; Pulse Ox 92% on R/A; as6 10/14 03:00 BP 106 / 57; Pulse 84; Resp 22 S; Pulse Ox 91% on R/A; as6 10/13 17:59 Body Mass Index 24.11 (76.20 kg, 177.80 cm) MDM: 10/13 18:08 Patient medically screened. jr8 21:51 Data reviewed: vital signs, nurses notes, lab test result(s), EKG, radiologic studies, jr8 plain films. Data interpreted: Pulse oximetry: on room air is 92 %. Interpretation: acceptable. Counseling: I had a detailed discussion with the patient and/or guardian regarding: the historical points, exam findings, and any diagnostic results supporting the discharge/admit diagnosis, lab results, radiology results, the need for further work-up and treatment in the hospital. 10/13 18:00 Order name: Amylase, Serum 10/13 18:00 Order name: Basic Metabolic Panel 10/13 18:00 Order name: Protime (+inr); Complete Time: 19:20 10/13 18:00 Order name: Ptt, Activated; Complete Time: 19:20 10/13 18:00 Order name: Urine Microscopic Only; Complete Time: 21:15 10/13 18:01 Order name: Basic Metabolic Panel; Complete Time: 19:20 [facility] 10/13 18:01 Order name: CBC with Diff; Complete Time: 21:15 [facility] 10/13 18:01 Order name: LFT's; Complete Time: 19:20 [facility] 10/13 18:01 Order name: Magnesium; Complete Time: 19:20 [facility] 10/13 18:01 Order name: NT PRO-BNP; Complete Time: 19:20 [facility] 10/13 18:01 Order name: Troponin (emerg Dept Use Only); Complete Time: 19:20 [facility] 10/13 18:01 Order name: COVID-19/FLU A+B (Document "Date of Onset" if Symptomatic); Complete Time: [facility] 19:20 10/13 18:01 Order name: Procalcitonin; Complete Time: 19:20 [facility] 10/13 18:01 Order name: Lactate; Complete Time: 19:20 [facility] 10/13 18:01 Order name: Blood Culture Adult (2) [facility] 10/13 18:30 Order name: Creatine Phosphokinase; Complete Time: 19:20 EDMD 10/13 18:30 Order name: CKMB Creatine Kinase MB; Complete Time: 19:20 EDMS 10/13 18:30 Order name: Amylase; Complete Time: 19:20 EDMD 10/13 18:00 Order name: Chest Single View XRAY; Complete Time: 19:20 10/13 18:00 Order name: Accucheck; Complete Time: 22:59 10/13 18:00 Order name: Cardiac monitoring; Complete Time: 22:59 10/13 18:00 Order name: EKG - Nurse/Tech 10/13 18:00 Order name: IV Saline Lock - Large Bore; Complete Time: 22:59 10/13 18:00 Order name: Labs collected and sent; Complete Time: 22:59 10/13 18:00 Order name: O2 Per Protocol; Complete Time: 22:59 10/13 18:00 Order name: O2 Sat Monitoring; Complete Time: 22:59 10/13 18:01 Order name: EKG; Complete Time: 18:02 [facility] 10/13 18:01 Order name: Cardiac monitoring; Complete Time: 22:59 [facility] 10/13 18:01 Order name: IV Saline Lock; Complete Time: 18:31 [facility] 10/13 18:01 Order name: Labs collected and sent; Complete Time: 18:31 [facility] 10/13 18:01 Order name: O2 Per Protocol; Complete Time: 22:59 [facility] 10/13 18:01 Order name: O2 Sat Monitoring; Complete Time: 22:59 [facility] 10/13 18:30 Order name: Lipase; Complete Time: 19:20 [facility] 10/13 19:09 Order name: Urine Dipstick-Ancillary; Complete Time: 19:20 [facility] 10/13 19:58 Order name: CBC Smear Scan; Complete Time: 21:15 EDMS 10/14 05:18 Order name: CBC with Automated Diff; Complete Time: 15:44 EDMS 10/14 05:42 Order name: Comprehensive Metabolic Panel; Complete Time: 15:44 EDMS 10/14 05:42 Order name: Phosphorus; Complete Time: 15:44 EDMS 10/14 05:42 Order name: Lipid Profile; Complete Time: 15:44 EDMS 10/14 05:42 Order name: T4 Free; Complete Time: 15:44 EDMS 10/14 05:42 Order name: Magnesium; Complete Time: 15:44 EDMS 01 05:42 Order name: Thyroid Stimulating Hormone; Complete Time: 15:44 EDMS Administered Medications: 18:08 Not Given (Physician Discretion): NS 0.9% (30 ml/kg) 30 ml/kg IV at bolus once; Sepsis jr8 Protocol 22:59 Drug: LevaQUIN (levofloxacin) 750 mg Volume: 150 ml; Route: IVPB; Infused Over: 90 as6 mins; Site: right antecubital; Disposition: 18:58 Co-signature as Attending Physician, David Oconnell MD I agree with the assessment and kdr plan of care. Disposition Summary: 10/13/21 21:52 Hospitalization Ordered Hospitalization Status: Inpatient Admission jr8 Provider: Diony Hawkins Phillip Condition: Stable jr8 Problem: new jr8 Symptoms: are unchanged jr8 Bed/Room Type: Standard [facility] Location: [facility] ER HOLD(10/13/21 21:52) Room Assignment: ERHOLD-(10/13/21 21:52) Diagnosis - Pneumonia, unspecified organism jr8 - Respiratory failure, unspecified with hypoxia jr8 Forms: - Medication Reconciliation Form jr8 - SBAR form jr8 Signatures: Dispatcher [employer] EDMD Carrie Ocampo RN RN David Oconnell MD MD kdr Mickail, Joel, PA PA jmm Williams, Irene, RN RN Yon Jarrett PA PA jr8 Stephan Clayton RN RN as6 Corrections: (The following items were deleted from the chart) 18:05 18:02 Chest Single View+RAD.RAD.BRZ ordered. EDMS EDMS 18:30 18:01 PCT+C.LAB.BRZ ordered. EDMS EDMS 18:31 18:01 Amylase ordered. EDMS EDMS 18:31 18:01 Basic Metabolic Panel ordered. EDMS EDMS 18:31 18:01 BLOOD CULTURE*+BA.LAB.BRZ ordered. EDMS EDMS 18: 18:01 CBC+H.LAB.BRZ ordered. EDMS EDMS 18: 18:01 CREATINE PHOSPHOKINASE+C.LAB.BRZ ordered. EDMS EDMS 18: 18:01 CKMB+C.LAB.BRZ ordered. EDMS EDMS 18: 18:01 HEPATIC FUNCTION+C.LAB.BRZ ordered. EDMS EDMS 18: 18:01 LACTATE+C.LAB.BRZ ordered. EDMS EDMS 18: 18:01 LIPASE+C.LAB.BRZ ordered. EDMS EDMS 18: 18:01 TROPONIN (EMERG DEPT USE ONLY)+C.LAB.BRZ ordered. EDMS EDMS 18: 18:02 PROTIME (+INR)+COAG.LAB.BRZ ordered. EDMS EDMS 21:52 21:52 Telemetry/MedSurg (Inpatient) [facility] 21:52 21:52 [facility]
--- NOTE | 2021-10-13 21:59 | P.HP ---
Certification for Inpatient Patient admitted to: Inpatient With expected LOS: <2 Midnights Patient will require the following post-hospital care: None Practitioner: I am a practitioner with admitting privileges, knowledge of patient current condition, hospital course, and medical plan of care. Services: Services provided to patient in accordance with Admission requirements found in Title 42 Section 412.3 of the Code of Federal Regulations Patient History Date of Service: 10/13/21 Reason for admission: pneumonia History of Present Illness: Mr. Orr is an 80 yo M with CAD, HTN, HLD, BPH, COPD, GERD, migraines, chronic atrial fibrillation on xarelto who presents with one day of fever and cough. Around lunch time, he had chills. Then he had SOB and cough, and felt like he couldn't cough anything up. He reports wheezing, malaise, weakness. Denies N/V/D, pleuritic pain. Plt 149 BUN 27 Cr 1.37 GFR 50 BNP 1257 procalcitonin 1.27 CXR IMPRESSION: Basilar airspace disease, left greater than right, concerning for pneumonia. Allergies No Known Allergies Allergy (Verified 01/12/20 04:33) Home Medications: Esomeprazole Mag Trihydrate [Nexium] 40 mg PO DAILY 11/11/18 Fenofibrate,Micronized [Fenofibrate] 130 mg PO DAILY 11/11/18 Finasteride [Proscar*] 5 mg PO DAILY 11/11/18 Pravastatin Sodium [Pravachol] 40 mg PO DAILY 11/11/18 Pregabalin [Lyrica*] 75 mg PO PRN 11/11/18 Rivaroxaban [Xarelto*] 20 mg PO DAILY 11/11/18 Tamsulosin [Flomax*] 0.4 mg PO DAILY 11/11/18 carBAMazepine [Tegretol*] 200 mg PO BID 11/11/18 Amlodipine Besylate 10 mg PO DAILY 01/12/20 Umeclidinium Brm/Vilanterol Tr [Anoro Ellipta 62.5-25 Mcg INH] 1 puff IH PRN 01/12/20 Clopidogrel Bisulfate [Plavix] 75 mg PO DAILY #30 tablet 01/14/20 - Past Medical/Surgical History Diabetic: No -: HTN -: [place] 1992 -: HLD -: Shingles -: Neuropathy -: Afib/flutter hx of -: BPH -: GERD -: CAD -: Angioplasty 1982 no stents - Family History Family History: Reviewed- Non-Contributory - Family History Father -: Liver disease Mother -: Cancer Notes: esophageal Brother -: Lung disease, Cancer - Social History Smoking Status: Former smoker Alcohol use: Yes CD- Drugs: No Caffeine use: Yes Place of Residence: Home Review of Systems 10-point ROS is otherwise unremarkable General: Fever, Chills, Weakness, Malaise Eyes: Unremarkable ENT: Unremarkable Respiratory: Cough, Shortness of Breath, SOB with Excertion, Wheezing, As per HPI Cardiovascular: Unremarkable Gastrointestinal: Unremarkable Genitourinary: Unremarkable Musculoskeletal: Unremarkable Integumentary: Unremarkable Neurological: Unremarkable Lymphatics: Unremarkable Physical Examination - Physical Exam General: Alert, In no apparent distress HEENT: Atraumatic, PERRLA, Mucous membr. moist/pink, EOMI, Sclerae nonicteric Neck: Supple, 2+ carotid pulse no bruit, No LAD, Without JVD or thyroid abnormality Respiratory: Normal air movement, Expiratory wheezes, Rhonchi/gurgles Cardiovascular: Regular rate/rhythm, Normal S1 S2, Systolic murmur Capillary refill: <2 Seconds Gastrointestinal: Normal bowel sounds, No tenderness Musculoskeletal: No tenderness Integumentary: No rashes Neurological: Normal speech, Normal strength at 5/5 x4 extr, Normal tone, Normal affect Lymphatics: No axilla or inguinal lymphadenopathy - Studies Laboratory Data (last 24 hrs) 10/13/21 18:14: WBC 4.40, Hgb 14.1, Hct 42.0, Plt Count 149 L 10/13/21 18:14: Sodium 137, Potassium 3.8, BUN 27 H, Creatinine 1.37 H, Glucose 105, Magnesium 2.1, Total Bilirubin 1.3 H, AST 12 L, ALT 24, Alkaline Phosphatase 82, Amylase 54, Lipase 77 10/13/21 18:14: PT 22.6 H, INR 1.95, APTT 34.2 10/13/21 18:01: PT Cancelled, INR Cancelled 10/13/21 18:00: WBC Cancelled, Hgb Cancelled, Hct Cancelled, Plt Count Cancelled 10/13/21 18:00: Sodium Cancelled, Potassium Cancelled, BUN Cancelled, Creatinine Cancelled, Glucose Cancelled, Total Bilirubin Cancelled, AST Cancelled, ALT Cancelled, Alkaline Phosphatase Cancelled, Amylase Cancelled, Lipase Cancelled Assessment and Plan - Problems (Diagnosis) (1) Pneumonia Current Visit: Yes Status: Acute Qualifiers: Pneumonia type: due to unspecified organism Laterality: bilateral Lung location: unspecified part of lung Qualified Code(s): J18.9 - Pneumonia, unspecified organism (2) HTN (hypertension) Current Visit: Yes Status: Chronic Qualifiers: Hypertension type: primary hypertension Qualified Code(s): I10 - Essential (primary) hypertension (3) CAD (coronary artery disease) Current Visit: Yes Status: Chronic Qualifiers: Coronary Disease-Associated Artery/Lesion type: unspecified vessel or lesion type [place] vs. transplanted heart: [place] heart Associated angina: without angina Qualified Code(s): I25.10 - Atherosclerotic heart disease of [place] coronary artery without angina pectoris (4) HLD (hyperlipidemia) Current Visit: Yes Status: Chronic Qualifiers: Hyperlipidemia type: other hyperlipidemia Qualified Code(s): E78.49 - Other hyperlipidemia; E78.4 - Other hyperlipidemia (5) GERD (gastroesophageal reflux disease) Current Visit: Yes Status: Chronic Qualifiers: Esophagitis presence: without esophagitis Qualified Code(s): K21.9 - Gastro-esophageal reflux disease without esophagitis (6) BPH (benign prostatic hyperplasia) Current Visit: Yes Status: Chronic Qualifiers: Lower urinary tract symptom presence: unspecified whether lower urinary tract symptoms present Qualified Code(s): N40.0 - Benign prostatic hyperplasia wi thout lower urinary tract symptoms (7) COPD (chronic obstructive pulmonary disease) Current Visit: Yes Status: Chronic Qualifiers: COPD type: unspecified COPD Qualified Code(s): J44.9 - Chronic obstructive pulmonary disease, unspecified (8) Chronic atrial fibrillation Current Visit: Yes Status: Acute - Plan continue IV antibiotics breathing treatments and O2 as needed antipyretics obtain and reconcile home medications monitor BP, hydralazine PRN for BP spikes DVT ppx Discharge Plan: Home Plan to discharge in: 48 Hours - Advance Directives Does patient have a Living Will: No Does patient have a Durable POA for Healthcare: No - Code Status/Comfort Care Code Status Assessed: Yes (full code ) Critical Care: No Time Spent Managing Pts Care (In Minutes): 70
[2021-10-13] MEDS ORDERED: Levofloxacin 750mg IV 750 MG/150 ML BAG IV ONE (22:45)
[2021-10-14] MEDS ORDERED: BENZONATATE 100 MG CAP PO PRN (01:05)
[2021-10-14] MEDS ORDERED: MUCINEX DM 12HR.SR TAB PO PRN (01:05)
[2021-10-14] MEDS ORDERED: ACETAMINOPHEN 500 MG TAB PO PRN (01:05)
[2021-10-14] MEDS ORDERED: ONDANSETRON 4 MG/2 ML VIAL IV PRN (01:05)
[2021-10-14] MEDS ORDERED: IPRATROPIUM BROM 0.5MG/2.5ML NEB PRN (01:05)
[2021-10-14] MEDS ORDERED: HYDRALAZINE HCL 20 MG/ML VIAL IV PRN (01:05)
[2021-10-14] MEDS ORDERED: ALBUTEROL 2.5 MG/3 ML NEB SOL NEB PRN (01:05)
[2021-10-14] MEDS ORDERED: MELATONIN 5 MG TABLET PO PRN (01:05)
[2021-10-14 04:23] VITALS: BMI 27.0
[2021-10-14 05:16] LABS: Absolute Lymphocytes (CBC) 0.8 K/uL (0.7-4.9); Hematocrit 35.1 % (39.6-49.0); Lymphocytes % 9.9 % (15.3-44.8); MPV 7.9 fL (7.6-11.3); RBC Red Blood Cell Count 3.82 M/uL (4.33-5.43)
[2021-10-14 05:34] LABS: Albumin 2.9 g/dL (3.4-5.0); Bilirubin Total 1.4 mg/dL (0.2-1.0); Magnesium 2.1 mg/dL (1.8-2.4); Phosphorus 3.6 mg/dL (2.5-4.9); Potassium 4.3 mmol/L (3.5-5.1); Protein, Total 6.5 g/dL (6.4-8.2); Thyroid Stimulating Hormone 1.01 uIU/mL (0.360-3.740)
[2021-10-14] MEDS ORDERED: NA CHLORIDE 0.9% 250 ML IV ONE (06:55)
[2021-10-14] MEDS ORDERED: LEVALBUTEROL 0.63 MG/3 ML NEB NEB PRN (06:57)
--- NOTE | 2021-10-14 07:04 | P.PN ---
Subjective Date of Service: 10/14/21 Primary Care Provider: Dr. Castano; Cardiology-Dr. Vidal Chief Complaint: pneumonia Subjective: Improving, Doing well Physical Examination - Studies Laboratory Data (last 24 hrs) 10/13/21 18:14: WBC 4.40, Hgb 14.1, Hct 42.0, Plt Count 149 L 10/13/21 18:14: Sodium 137, Potassium 3.8, BUN 27 H, Creatinine 1.37 H, Glucose 105, Magnesium 2.1, Total Bilirubin 1.3 H, AST 12 L, ALT 24, Alkaline Phosphatase 82, Amylase 54, Lipase 77 10/13/21 18:14: PT 22.6 H, INR 1.95, APTT 34.2 10/13/21 18:01: PT Cancelled, INR Cancelled 10/13/21 18:00: WBC Cancelled, Hgb Cancelled, Hct Cancelled, Plt Count Cancelled 10/13/21 18:00: Sodium Cancelled, Potassium Cancelled, BUN Cancelled, Creatinine Cancelled, Glucose Cancelled, Total Bilirubin Cancelled, AST Cancelled, ALT Cancelled, Alkaline Phosphatase Cancelled, Amylase Cancelled, Lipase Cancelled Assessment & Plan Discharge Plan: Home Plan to discharge in: 24 Hours Physician Review Additional Text: COVID: negative CXR: COMPARISON: Chest Pa And Lat (2 Views) dated 06/18/2021; Chest Single View dated 01/12/2020; Chest Single View dated 11/10/2018; Chest Pa And Lat (2 Views) dated 11/04/2018 FINDINGS: Lines: None. Lungs: Consolidative airspace disease in the lung bases, left greater than right. Pleural: No significant pleural effusions or pneumothorax. Cardiac: The heart size is within normal limits. Bones: No acute fractures. IMPRESSION: Basilar airspace disease, left greater than right, concerning for pneumonia. Physical Exam General: Alert, In no apparent distress, Oriented x3, Cooperative HEENT: Atraumatic Neck: Supple Respiratory: Clear to auscultation bilaterally, Normal air movement Cardiovascular: Normal pulses, Regular rate/rhythm Gastrointestinal: Normal bowel sounds, Soft and benign, Non-distended, No tenderness, No masses, No rebound, No guarding Neurological: Normal speech, Normal strength at 5/5 x4 extr, Normal tone, Normal affect Impression: Cough secondary to Bilateral pneumonia Chronic atrial fibrillation on chronic anti coagulation therapy Hypertension Hyperlipidemia Chronic migraine headaches GERD Chronic pain BPH COPD Plan: Cough secondary to Bilateral pneumonia: Patient well. Patient on room air. Patient desires to go home. And appeared dry this morning. Patient received IV fluid bolus with improvement. Orthostatics checked and within normal range. Continue with Levaquin. We will plan for discharge today. Recommend close follow-up with PCP. Chronic atrial fibrillation on chronic anti coagulation therapy: obtain and verify home meds. NO Beta blockers due to history of bradycardia. Hypertension: NO Beta blockers. Obtain and verify home meds. Give fluid bolus. Hyperlipidemia: Continue with home medication Chronic migraine headaches: Continue with home medication GERD: Continue medication Chronic pain: Continue medication BPH: Continue medication COPD: Provide medication Time Spent Managing Pts Care (In Minutes): 55
[2021-10-14] MEDS ORDERED: ARFORMOTEROL TARTRATE 15 MCG/2 ML VIAL.NEB ONE (07:57)
[2021-10-14] MEDS ORDERED: ARFORMOTEROL TARTRATE 15 MCG/2 ML VIAL.NEB NEB SCH (08:00)
[2021-10-14] MEDS ORDERED: NA CHLORIDE 0.9% 1,000 ML IV SCH (08:00)
[2021-10-14] MEDS ORDERED: ENOXAPARIN 40 MG/0.4 ML SQ SCH (09:00)
[2021-10-14] MEDS ORDERED: FUROSEMIDE 40 MG TABLET PO SCH (09:00)
[2021-10-14] MEDS ORDERED: NA CHLORIDE 0.9% 250 ML ONE (09:49)
[2021-10-14] MEDS ORDERED: ENOXAPARIN 40 MG/0.4 ML SQ ONE (09:50)
[2021-10-14 10:19] VITALS: O2SAT 93
[2021-10-14] MEDS ORDERED: NA CHLORIDE 0.9% 1,000 ML ONE (10:30)
[2021-10-14 11:03] VITALS: TEMP 98.1
--- NOTE | 2021-10-14 12:32 | P.DS ---
Admission Date: 10/13/21 Discharge Date: 10/14/21 Primary Care Provider: Dr. Castano; Cardiology-Dr. Vidal Disposition: ROUTINE DISCHARGE Discharge Condition: GOOD Reason for Admission: pneumonia Consultations: none Procedures: COVID: negative CXR: COMPARISON: Chest Pa And Lat (2 Views) dated 06/18/2021; Chest Single View dated 01/12/2020; Chest Single View dated 11/10/2018; Chest Pa And Lat (2 Views) dated 11/04/2018 FINDINGS: Lines: None. Lungs: Consolidative airspace disease in the lung bases, left greater than right. Pleural: No significant pleural effusions or pneumothorax. Cardiac: The heart size is within normal limits. Bones: No acute fractures. IMPRESSION: Basilar airspace disease, left greater than right, concerning for pneumonia. Medical Problem List: Cough secondary to Bilateral pneumonia Chronic atrial fibrillation on chronic anti coagulation therapy Hypertension Hyperlipidemia Chronic migraine headaches GERD Chronic pain BPH COPD Brief History of Present Illness: 80-year-old male with history of CAD, hypertension, hyperlipidemia, BPH, CHF, and chronic anticoagulation therapy on Xarelto. Patient came in with cough and fever. Patient reported some chills. Some shortness of breath also noted. He came to the ER for further evaluation. White count within normal range. Procalcitonin was elevated. Chest x-ray showed possible pneumonia. Patient was admitted for further evaluation and treatment. Hospital Course: Patient presented with cough, shortness of breath. This was secondary to bilateral pneumonia. Patient also appeared slightly dehydrated. Patient received IV antibiotic therapy and IV fluids. Patient has done well. Patient on room air. Patient ambulating well and orthostatics unremarkable. Patient will be discharged home with Levaquin 500 mg daily for 7 days. A limited supply of Tessalon Perles 100 mg 3 times a day as needed for cough will be provided. Recommend follow-up with PCP in 1 week to follow-up his hospitalization. Recommend to recheck chest x-ray in 2 to 4 weeks to monitor resolution. Patient with underlying COPD. At discharge patient will continue with his inhaler Wilexa 1 puff twice daily. Patient with chronic atrial fibrillation on chronic anticoagulation therapy. At discharge patient will continue with Eliquis 5 mg 1 pill twice daily. Patient also takes metoprolol 25 mg daily. Patient with hypertension. At discharge patient will continue with Norvasc 10 mg daily and metoprolol 25 mg daily. Recommend to hold blood pressure medication if blood pressure systolic less than 110 or heart rate less than 60. Patient with history of CHF. Patient takes Lasix 40 mg 1 pill twice daily and Aldactone 25 mg daily. Patient appears to be slightly dehydrated. Recommend to hold diuretic therapy for at least 1 to 2 days. May restart medication in 1 to 2 days. Recommend 1500 cc/day fluid restriction and low-salt diet. Recommend to monitor his weight daily. Further adjustment can be done by his PCP or cardiology. Patient with GERD. At discharge patient will continue with Nexium 40 mg daily. Patient with hyperlipidemia. At discharge patient will continue with pravastatin 40 mg daily. Patient with BPH. At discharge patient will continue with Flomax 0.8 mg daily. Patient with chronic pain. At discharge patient will continue with baclofen 10 mg twice daily as needed for pain/muscle spasm. Vital Signs/Physical Exam: Temp Pulse Resp BP Pulse Ox 98.1 F 74 21 H 101/65 98 10/14/21 11:01 10/14/21 11:10/14/21 11:01 10/14/21 11:10/14/21 11:01 General: Alert, In no apparent distress, Oriented x3, Cooperative HEENT: Atraumatic Neck: Supple Respiratory: Clear to auscultation bilaterally, Normal air movement Cardiovascular: Normal pulses, Regular rate/rhythm Gastrointestinal: Normal bowel sounds, No masses, No rebound, No guarding Musculoskeletal: No erythema, No tenderness, No warmth Integumentary: No tenderness/swelling, No erythema, No warmth, No cyanosis Neurological: Normal speech, Normal strength at 5/5 x4 extr, Normal tone Laboratory Data at Discharge: WBC 8.00 K/uL (4.3-10.9) D 10/14/21 04:59 Hgb 11.9 g/dL (13.6-17.9) L 10/14/21 04:59 Hct 35.1 % (39.6-49.0) L D 10/14/21 04:59 Plt Count 121 K/uL (152-406) L 10/14/21 04:59 PT 22.6 SECONDS (9.5-12.5) H 10/13/21 18:14 INR 1.95 10/13/21 18:14 APTT 34.2 SECONDS (24.3-36.9) 10/13/21 18:14 Sodium 138 mmol/L (136-145) 10/14/21 04:59 Potassium 4.3 mmol/L (3.5-5.1) 10/14/21 04:59 BUN 24 mg/dL (7-18) H 10/14/21 04:59 Creatinine 1.21 mg/dL (0.55-1.3) 10/14/21 04:59 Glucose 101 mg/dL (74-106) 10/14/21 04:59 Phosphorus 3.6 mg/dL (2.5-4.9) 10/14/21 04:59 Magnesium 2.1 mg/dL (1.8-2.4) 10/14/21 04:59 Total Bilirubin 1.4 mg/dL (0.2-1.0) H 10/14/21 04:59 AST 9 U/L (15-37) L 10/14/21 04:59 ALT 17 U/L (12-78) 10/14/21 04:59 Alkaline Phosphatase 54 U/L (45-117) 10/14/21 04:59 Triglycerides 33 mg/dL (<150) 10/14/21 04:59 Cholesterol 62 mg/dL (<200) 10/14/21 04:59 HDL Cholesterol 38 mg/dL (40-60) L 10/14/21 04:59 Cholesterol/HDL Ratio 1.63 10/14/21 04:59 Amylase 54 U/L (25-115) 10/13/21 18:14 Lipase 77 U/L (73-393) 10/13/21 18:14 Home Medications: Tamsulosin [Flomax*] 2 cap PO BEDTIME 11/11/18 Amlodipine Besylate 10 mg PO BEDTIME 01/12/20 Apixaban [Eliquis *] 5 mg PO BID 10/14/21 Baclofen 10 mg PO BID 10/14/21 Benzonatate [Tessalon Perle*] 100 mg PO TID PRN #10 cap 10/14/21 Esomeprazole Mag Trihydrate [Nexium] 40 mg PO DAILY 10/14/21 Fluticasone Propion/Salmeterol [Wixela 100-50 Inhub] 1 puff PO BID 10/14/21 Furosemide 40 mg PO BID 10/14/21 Gabapentin [Neurontin*] 2 cap PO BID 10/14/21 Levofloxacin [Levaquin] 500 mg PO DAILY #7 tablet 10/14/21 Metoprolol Tartrate 0.5 tab PO DAILY 10/14/21 Pravastatin [Pravachol*] 40 mg PO BEDTIME PRN 10/14/21 Spironolactone 1 tab PO DAILY 10/14/21 New Medications: Levofloxacin [Levaquin] 500 mg PO DAILY #7 tablet Benzonatate [Tessalon Perle*] 100 mg PO TID PRN #10 cap PRN Reason: Cough Physician Discharge Instructions: Patient presented with cough, shortness of breath. This was secondary to bilateral pneumonia. Patient also appeared slightly dehydrated. Patient received IV antibiotic therapy and IV fluids. Patient has done well. Patient on room air. Patient ambulating well and orthostatics unremarkable. Patient will be discharged home with Levaquin 500 mg daily for 7 days. A limited supply of Tessalon Perles 100 mg 3 times a day as needed for cough will be provided. Recommend follow-up with PCP in 1 week to follow-up his hospitalization. Recommend to recheck chest x-ray in 2 to 4 weeks to monitor resolution. Patient with underlying COPD. At discharge patient will continue with his inhaler Wilexa 1 puff twice daily. Patient with chronic atrial fibrillation on chronic anticoagulation therapy. At discharge patient will continue with Eliquis 5 mg 1 pill twice daily. Patient also takes metoprolol 25 mg daily. Patient with hypertension. At discharge patient will continue with Norvasc 10 mg daily and metoprolol 25 mg daily. Recommend to hold blood pressure medication if blood pressure systolic less than 110 or heart rate less than 60. Patient with history of CHF. Patient takes Lasix 40 mg 1 pill twice daily and Aldactone 25 mg daily. Patient appears to be slightly dehydrated. Recommend to hold diuretic therapy for at least 1 to 2 days. May restart medication in 1 to 2 days. Recommend 1500 cc/day fluid restriction and low-salt diet. Recommend to monitor his weight daily. Further adjustment can be done by his PCP or cardiology. Patient with GERD. At discharge patient will continue with Nexium 40 mg daily. Patient with hyperlipidemia. At discharge patient will continue with pravastatin 40 mg daily. Patient with BPH. At discharge patient will continue with Flomax 0.8 mg daily. Patient with chronic pain. At discharge patient will continue with baclofen 10 mg twice daily as needed for pain/muscle spasm. Diet: AHA Activity: Ad arabella Followup: Antwan Lopez MD [Primary Care Provider] - Time spent managing pt's care (in minutes): 55
[2021-10-14 12:58] VITALS: BP 98/61
[2021-10-15] MEDS ORDERED: PANTOPRAZOLE 40MG TABLET PO SCH (06:30)
[2021-10-15] MEDS ORDERED: Levofloxacin 750mg IV 750 MG/150 ML BAG IV SCH (21:00)
== END 2021-10-14 14:07 | disposition home or self-care (01) | DRG 194 ==
LOC: ER 17:10 → ERHOLD 21:59
PROVIDERS: ADMIT Family Medicine; ATTEND Family Medicine
DX: J18.9 Pneumonia, unspecified organism (principal); I48.20 Chronic atrial fibrillation, unspecified; J44.0 Chronic obstructive pulmonary disease with (acute) lower respiratory infection; I10 Essential (primary) hypertension; N40.0 Benign prostatic hyperplasia without lower urinary tract symptoms; I25.10 Atherosclerotic heart disease of native coronary artery without angina pectoris; G89.29 Other chronic pain; E86.0 Dehydration; E78.49 Other hyperlipidemia; G43.909 Migraine, unspecified, not intractable, without status migrainosus; K21.9 Gastro-esophageal reflux disease without esophagitis; I25.2 Old myocardial infarction; Z95.5 Presence of coronary angioplasty implant and graft; Z79.01 Long term (current) use of anticoagulants; Z79.899 Other long term (current) drug therapy; Z87.891 Personal history of nicotine dependence; Z20.822 Contact with and (suspected) exposure to COVID-19
CPT/HCPCS: 0240U; 36415; 71045; 80048; 80053; 80061; 80076; 81003; 81015; 82150; 82550; 82553; 83605; 83690; 83735; 83880; 84100; 84145; 84439; 84443; 84484; 85025; 85610; 85730; 87040; 94640; 94760; 96374; 97116; 97161; 99284; J1650; J7030; J7050; J7605